=== PATIENT | male | born 1960 | race Caucasian/White ===

== ENCOUNTER 2016-12-10 20:01 | Inpatient (IN) | payer OTHER ==
[~2016-12-10] VITALS: Ht 182.9 cm; Wt 113.3 kg
--- NOTE | ~2016-12-10 | ECHO ---
Transthoracic Echocardiography Report (TTE) Demographics Patient Name MARY ALLEN Date of Study 12/11/2016 R Patient Number [id number] Visit Number [id number] Date of 1960 Room Number G6338 Gender Male Number Age 56 year(s) Referring Gorge Quintero MD Tube Mill Operator Arben Irby RVT, Physician RDCS Physician Interpreting Charley Holland MD Knit Goods Washer Physician Supervising Ordering Nicki Saavedra MD, MD/MLP Physician Nurse Stress Bar Supervisor Conclusions Contractility Score Summary At rest the following contractility abnormalities were noted: Hypokinesis of the Apical inferior and the Apical septal segments. Contractility of all other segments appeared normal. Summary The estimated left ventricular ejection fraction is 50%. Mild concentric left ventricular hypertrophy. Diastolic assessment reveals Grade I diastolic dysfunction. The left atrium is moderately dilated. No significant valvular abnormalities. Procedure Type of Study TTE procedure:2D Echocardiogram. Procedure Date Date: 12/11/2016 Start: 09:04 AM Study Location: Inpatient Portable Technical Quality: Adequate visualization Indications:Chest pain. Appropriate Use Criteria: 8 Patient Status: Routine Rhythm: NSR HR: 74 bpm BP: 139/65 mmHg Allergies - No known allergies. M-Mode/2D Measurements LV Diastolic Dimension: 5.85 cm LV Systolic Dimension: 3.83 cm LV Septum Diastolic: 1.34 cm LV PW Diastolic: 1.12 cm AO Root Dimension: 2.8 cm Cardiac Output: 3.96 l/min AV Cusp Separation: 2.1 cm RV Diastolic Dimension: 3.5 cm LA volume: 88 ml LVOT: 2.3 cm RV Base: 3.42 cm LVOT VTI: 12.9 cm RV Mid: 3.22 cm LV Stroke volume: 53.57 ml TAPSE: 1.99 cm TDI-S': 12.8 cm/s Doppler Measurements AV Peak Velocity: 1.26 m/s MV Peak E-Wave: 0.7 m/s AV Peak Gradient: 6.35 mmHg MV Peak A-Wave: 0.89 m/s AV Mean Gradient: 4 mmHg MV E/A Ratio: 0.78 LVOT Peak Velocity: 0.59 m/s MV P1/2t: 44 msec PV Peak Velocity: 1.12 m/s E' Septal Velocity: 0.08 m/s PV Peak Gradient: 5.02 mmHg E' Lateral Velocity: 0.14 m/s A' Septal Velocity: 0.14 m/s A' Lateral Velocity: 0.12 m/s Findings Left Ventricle Mild concentric left ventricular hypertrophy. Diastolic assessment reveals Grade I diastolic dysfunction. Mild inferior wall hypokinesis Right Ventricle Normal right ventricle structure and function. Left Atrium Normal left atrial size. Right Atrium Normal right atrial size. IVC measures 1.61 cm with inspiratory collapse. Mitral Valve Normal mitral valve structure and function. Aortic Valve Normal aortic valve structure and function. Tricuspid Valve Normal tricuspid valve structure and function. Pulmonic Valve Trivial pulmonic valve regurgitation by color Doppler. Pericardial Effusion No evidence of pericardial effusion. Miscellaneous Visualized portions of the aortic root and ascending aorta appear normal in size. Pleural Effusion No evidence of pleural effusion. Contractility Score LV regional wall motion:(0-Non visualized 1-Normal 2-Hypokinesis 3-Akinesis 4-Dyskinesis 5-Aneurysm) Signature dtt: Skyler Whitehead (cardio) dtd: 12/11/16 0904 Physician Self Edit
--- NOTE | ~2016-12-10 | ER ---
PATIENT'S NAME: MARY ALLEN [facility] AGE: 56 Y [address] ROOM: [place] [address] LOCATION: GPCU ADMIT DATE: 12/10/2016 ER/Outpatient Report DISCHARGE DATE: FAMILY PHYSICIAN: Sawyer Pennington MD ATTENDING PHYSICIAN: JUAN FINE Time of Arrival: 2000 hours. Time of Exam: 2001 hours. CHIEF COMPLAINT: Chest pain. HISTORY OF PRESENT ILLNESS: The patient states on 12/08/2016, he had an episode of mid chest pain that radiated into his left arm. He took Tums and the pain was relieved and did not have any more problems over the weekend. He had the episode occur again today at 3 o'clock. It started at the mid chest area and radiates down into his left arm. He was not nauseated, did not vomit, did not feel diaphoretic or short of breath. He did describe it as a burning sensation. He did take Tums. His symptoms were improved. He talked with a friend and a pharmacist at [facility], who recommended that he get it evaluated since it did radiate down into his arm. Upon arrival to the ER, he states he is pain-free. He does not have any pain at this time. He said when the pain did not occur at 3 o'clock this afternoon, he rated it as 7/10, but it is 0 at this time. ALLERGIES: HE HAS NO KNOWN ALLERGIES. CURRENT MEDICATIONS: Tums that he has been taking for this discomfort. PAST MEDICAL HISTORY: Possibly reflux. FAMILY HISTORY: He is unsure of. He states he was adopted. PAST SURGERY: Includes neck fusion at C4-C5 to C5-C6 and tonsillectomy. SOCIAL HISTORY: He presents to the ER accompanied by his . He does smoke 1-1/2 packs per day and has for at least 20 years. Denies use of drugs or alcohol. PRIMARY CARE PHYSICIAN: PATIENT'S NAME: MARY ALLEN [facility] AGE: 56 Y [address] ROOM: [place] [address] LOCATION: GPCU ADMIT DATE: 12/10/2016 ER/Outpatient Report DISCHARGE DATE: FAMILY PHYSICIAN: Sawyer Pennington MD ATTENDING PHYSICIAN: JUAN FINE Dr. is his primary provider. REVIEW OF SYSTEMS: Negative other than those mentioned in the HPI. PHYSICAL EXAMINATION: VITAL SIGNS: He weighed 115.7 kilograms; blood pressure is 159/89; pulse of 80; respirations 18; temperature of 97, tympanic; O2 saturation was 98% on room air. GENERAL: He is awake, alert, and oriented x4. SKIN: [place], warm, and dry. RESPIRATIONS: Even and nonlabored. LUNGS: Lung sounds are coarse throughout. No wheezing noted. HEART: Regular rate and rhythm. ABDOMEN: Soft, nondistended. Bowel sounds are present. He moves all extremities strongly and equally. LABORATORY DATA AND X-RAYS: Initial EKG shows sinus rhythm with left axis deviation. Lab work was drawn. CBC is within normal limits. Chem panel; sodium is 137, potassium 3.7, chloride 102, BUN is 11 with a creatinine of 1. Cardiac enzymes; CPK is 125, CK-MB is 1.6, troponin was elevated at 0.099. EMERGENCY DEPARTMENT COURSE: Saline lock was initiated. The patient was given 4 baby aspirin. Monitor continues to show sinus rhythm. Dr. Fine was contacted regarding the patient. He asked that we repeat the EKG and do the enzymes early. Repeat EKG was completed, no changes were noted. Lab work was done. CPK is 134, CK-MB is 1.6, troponin is increased to 0.109. The patient continues to deny having any chest pain or chest discomfort at the time. Chest x-ray was completed, no abnormalities are seen. IMPRESSION: Chest pain. PLAN: The patient will be placed in observation on PCU, to be followed by the hospitalist. He and his verbalized understanding. HORACIO DODSON APRN FOR JONN AGUILLON MD PATIENT'S NAME: MARY ALLEN [facility] AGE: 56 Y [address] ROOM: [place] [address] LOCATION: GPCU ADMIT DATE: 12/10/2016 ER/Outpatient Report DISCHARGE DATE: FAMILY PHYSICIAN: Sawyer Pennington MD ATTENDING PHYSICIAN: JUAN FINE/jenny /[id number] d: 12/11/1612 t: 12/14/16 1830, OUTPATIENT REPORT
--- NOTE | ~2016-12-10 | HP ---
PATIENT'S NAME: MARY ALLEN [facility] AGE: 56 Y [address] ROOM: [place] [address] LOCATION: GPCU ADMIT DATE: 12/10/2016 History & Physical DISCHARGE DATE: FAMILY PHYSICIAN: Sawyer Pennington MD ATTENDING PHYSICIAN: JUAN FINE DATE OF SERVICE: CHIEF COMPLAINT: Chest pain. HISTORY OF PRESENT ILLNESS: This is a 56-year-old male who said he was told in the past that he had some kind of irregular heart rhythm, but details not clear. He had also been told that he possibly had diabetes, but he was also not sure. He takes nothing at home for medications. The story started about 2 days ago while he was sitting on the couch. He felt this heartburn type of pain in the epigastric area and radiated to the left and right lower chest, intensity about 6/10. He felt like heartburn type of pain. He took some Tums and the pain went away totally. 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 However, when he sat down on the couch again, he felt this pain again in the epigastric area of the same intensity 6/10, felt like heartburn with radiation to the left and right lower chest and he took Tums again, and the pain went away again. He went to the pharmacy and he was told by the pharmacist to come to the ER for further evaluation to make sure that the heart was okay. The patient has never had this type of pain before. He denies any shortness of breath or fever or chills or any other symptoms. He is sedentary, obese, and actively smokes cigarettes. REVIEW OF SYSTEMS: As mentioned in the history of present illness. All other systems were reviewed and were negative except those mentioned in history of present illness. PAST MEDICAL HISTORY: 1. He was told in the past that he possibly had diabetes, but he is not sure. 2. He was told that he possibly had some kind of irregular heart rhythm, but he was not sure. ALLERGIES: NONE. HOME MEDICATIONS: None. PATIENT'S NAME: MARY ALLEN [facility] AGE: 56 Y [address] ROOM: [place] [address] LOCATION: GPCU ADMIT DATE: 12/10/2016 History & Physical DISCHARGE DATE: FAMILY PHYSICIAN: Sawyer Pennington MD ATTENDING PHYSICIAN: JUAN FINE SOCIAL HISTORY: The patient smokes cigarette about 1 pack per day for the last 20 years. He denies any illegal drug or any alcohol use. PAST SURGICAL HISTORY: 1. Neck surgery in the past. 2. Tonsillectomy. FAMILY HISTORY: He is adopted, therefore he does not know anything about his biological parents. He also does not know anything about his siblings. PHYSICAL EXAMINATION: VITAL SIGNS: At the time of my dictation; temperature 97.9, heart rate 71, respirations 17, blood pressure 158/82, saturation 95% on room air. GENERAL APPEARANCE: The patient is alert and oriented x3. Currently, in no acute distress. HEENT: Pupils equally round and reactive to light. Extraocular muscles intact. Anicteric sclerae. Nasal turbinates normal bilaterally. Moist oral mucosa. NECK: No JVD. CARDIOVASCULAR: Regular rate and rhythm. No murmur. No rubs. No gallops. Normal S1, S2. RESPIRATORY: Clear to auscultation. No rales. No rhonchi. No wheezing. No crackles. ABDOMEN: Obese, soft, nontender, nondistended, bowel sounds present. No mass. EXTREMITIES: No edema in upper or lower extremities. NEUROLOGICAL: Grossly nonfocal. SKIN: No ulcer, no rash, no cyanosis. LABORATORY DATA: CPK 125, troponin 0.099, CK-MB 1.6. White blood cell 9.4, hemoglobin 15.6, hematocrit 43.7, platelet 198, glucose 191, BUN 11, creatinine 1.0. Sodium 137, potassium 3.7, chloride 102, CO2 28, calcium 9.6, total protein 7.3, albumin 3.7, AST 19, ALT 38, alkaline phosphatase 95, total bilirubin 0.4, magnesium 2.1. Anion gap 10.7, INR 1.02, PTT 28, GFR 84. IMAGING STUDIES: Chest x-ray on admission, the official reading is pending. Please follow up with imaging and official report. EKG on admission, the first one was done on December 10, 2016 at 8:06 p.m. it shows sinus rhythm with left axis deviation. I do appreciate ST depression in anterolateral leads. No prior EKG for comparison. PATIENT'S NAME: MARY ALLEN [facility] AGE: 56 Y [address] ROOM: [facility] [place] [address] LOCATION: GPCU ADMIT DATE: 12/10/2016 History & Physical DISCHARGE DATE: FAMILY PHYSICIAN: Sawyer Pennington MD ATTENDING PHYSICIAN: JUAN FINE Repeat EKG back on December 10, 2016, at 9:33 p.m. again showed the same finding with a left axis deviation and ST depression in anterolateral leads. No prior EKG for comparison besides the first one admission before. ASSESSMENT AND PLAN: 1. Regarding his Lwo-LG-mnispezdb myocardial infarction. He has ST depression showing ischemia on EKG and he has risk factor for being obese and also active cigarette smoker and possibly has diabetes and he has troponin elevation. This is consistent with NSTEMI. I will do ACS protocol with heparin drip and a nitroglycerin drip for blood pressure control. An EKG in the morning again and EKG right away if he has chest pain. We will do aspirin and also Lipitor and also Lopressor as well. Echo in the morning, Cardiology consult and also further plan will depend on clinical course. N.p.o. Check lipid panel and A1c. Keep the potassium more than 4 and magnesium more than 2. 2. Regarding his possible diabetes. We will do sliding scale insulin right now. Check A1c. 3. Regarding history of possible irregular heart rhythm. Continue telemetry monitoring to see if we can pickup any arrhythmia. 4. Active tobacco use. Continue with nicotine patch. 5. He is a full code. 6. Deep venous thrombosis prophylaxis. He will be on heparin drip. Time spent in care on the day of admission 35 minutes where 10 minutes were spent on chart review. The remainder of the time spent on interview and physical examination, and also on counseling. Counseling includes going over plan of care with the patient and addressing all the questions and concerns to his satisfaction. Further plan will depend on clinical course. I also went over the plan of care with the nurse. JUAN FINE MD CC/modl /[id number] D: [id number] T: [id number] HISTORY & PHYSICAL
--- NOTE | ~2016-12-10 | DS ---
PATIENT'S NAME: MARY ALLEN [facility] AGE: 56 Y [address] ROOM: [facility] [place], [place] [address] LOCATION: GPCU ADMIT DATE: 12/10/2016 Discharge Summary DISCHARGE DATE: 12/12/2016 FAMILY PHYSICIAN: Sawyer Pennington MD ATTENDING PHYSICIAN: Amarjit Caceres FINAL/DISCHARGE DIAGNOSES: 1. Bih-UO-ctsjebrup myocardial infarction. 2. New-onset diabetes mellitus. 3. Dyslipidemia. 4. Long-term nicotine usage. HISTORY OF PRESENT ILLNESS: Please see the history and physical dictated by Dr. Caceres for details. In short, the patient presented with a 2 to 3 day history of chest pain and heartburn. He was seen in the emergency room and found to have elevated cardiac enzymes. LABORATORY DATA: On admission, sodium 137, discharge 141; potassium on admission 3.7, was 3.7 on discharge; chloride on admission 28, discharge 24; BUN on admission 11, discharge 11; and creatinine on admission 1, discharge 0.9. Liver enzymes were normal. Total cholesterol was 202, triglycerides 200, HDL 33, and LDL 129. His troponin, his CK enzymes were all in the normal range. His troponin on admission was 0.099. It did gradually increase and the highest was 0.205. Hemoglobin A1c was 8.6, a proBNP was 328. White blood cell count on admission was 9.4, hemoglobin 15.6, hematocrit 43.7, MCV was 89.9, and platelet count 198,000. His coagulation studies were all normal on admission. RADIOLOGY DATA: Chest x-ray on admission did not show any acute changes. Echocardiogram showed that his ejection fraction was 50%. He did have hypokinesis of the apical inferior and apical septal regions. There was grade 1 diastolic dysfunction and evidence of mild concentric left ventricular hypertrophy. HOSPITAL COURSE: The patient was admitted to PCU with an acute coronary syndrome protocol. He was placed on IV nitroglycerin and heparin. He was also given an aspirin and a beta eric and started on a high-dose statin. Dr. Whitehead did see him in consultation and felt that he required a cardiac catheterization. The patient was taken to the catheterization lab on the afternoon of December 11. At that time, he was found to have a lesion in his right coronary artery. The patient did undergo a PTCA stent for that. Please see Dr. Whitehead's note for full details of the cardiac catheterization. The patient was noted to have elevated blood sugars and his hemoglobin A1c of 8.6, was consistent with a diagnosis of diabetes mellitus, type 2. The patient was started on NovoLog carb count and sliding scale here to help control his blood PATIENT'S NAME: MARY ALLEN [facility] AGE: 56 Y [address] ROOM: [place] [address] LOCATION: GPCU ADMIT DATE: 12/10/2016 Discharge Summary DISCHARGE DATE: 12/12/2016 FAMILY PHYSICIAN: Sawyer Pennington MD ATTENDING PHYSICIAN: Amarjit Caceres. A life educator was asked to see him regarding education. The patient was monitored overnight. After his cardiac intervention, he was overall doing well. Was symptom free. The life educator had seen him and the decision was made to discharge him. At that time, we did speak about medications. I told him that I would like to place him on Glucophage. He did share with me that he had used that medication in the past and had significant diarrhea. He was using it in the morning and did not have a specific recall of the dosage. After discussion with he and his significant other, the decision was made to try it again but to use it in the evening. DISCHARGE INSTRUCTIONS: He is to follow up with Dr. Pennington, his primary care provider in [place]. He is to see him in 3 to 5 days. Follow up with Dr. Skyler Whitehead in 2 weeks. Diet was diabetic diet. He is to follow the routine post catheterization restrictions. He was told that he could return to work on 12/17/2016. He was counseled about the importance of smoking cessation. DISCHARGE MEDICATIONS: 1. Aspirin 81 mg daily. 2. Lipitor 80 mg at bedtime. 3. Enalapril 2.5 mg daily. 4. Metoprolol 25 mg twice daily. 5. Brilinta 90 mg twice daily. He was given a coupon. 6. Metformin 500 mg to start in the evening, to start on December 13. OVERALL PROGNOSIS: At discharge was good. It was also recommended that he follow up with the life educator. He did voice understanding. MD HOMER GALAN/nakull /[id number] d: 12/13/16 1622 t: 12/14/16 1949, DISCHARGE SUMMARY
--- NOTE | ~2016-12-10 | CATH ---
Cardiac Diagnostic + PCI Report Demographics Patient Name TIFFANY Gender Male MARY Briones Date of 1960 Age 56 year(s) Patient Number [id number] Date of Study 12/11/2016 Visit Number [id number] Room Number G6[address] [place] [id number] Ht 182.88 cm Wt 113.4 kg Referring Gorge Quintero Primary Physician Physician MD Performing Charley Holland MD Secondary Physician Physician Diagnostic Charley Holland MD Assisting Physician Physician Interventional Charley Holland MD Physician 7Th Grade Teacher Physician Findings and Conclusions Diagnostic Findings and Conclusion 1 vessel CAD Diagnostic Recommendations PCI RCA Interventional Findings and Conclusion 0.014 Prowater 3.5 x 20 Emerge 4 x 38 Promus post dilated to 4.3mm Interventional Recommendations DAPT x1 year Routine post perclose Procedure Description The patient was brought to the diagnostic cardiac catheterization-EP laboratory in the fasting, non-sedated state. Informed consent was obtained in the written and verbal form after the risks and benefits were explained. The patient had no further questions and agreed to proceed. The planned puncture-incision site(s) were shaved and prepped with ChloraPrep and draped in the usual sterile manner. Conscious sedation, supplemental oxygen, and pain control medications were delivered by a registered nurse under physician guidance. Surface ECG rhythm, blood pressure measurement, and pulse oximetry were monitored throughout the procedure. Arterial access. The access site was infiltrated with lidocaine. The vessel was entered with the Seldinger technique. A sheath was advanced into the vessel and used for catheter placement. Selective left coronary angiography. A catheter was advanced into the left coronary vessel ostium under Fluoroscopic guidance. Contrast was injected by hand. Images were obtained in multiple projections. Selective right coronary angiography. A catheter was advanced into the right coronary vessel ostium under fluoroscopic guidance. Contrast was injected by hand. Images were obtained in multiple projections. Left heart catheterization. A catheter was advanced across the aortic valve to the left ventricle under fluoroscopic guidance. Resting hemodynamics were obtained. Angioplasty and Stent Placement: A guiding catheter was used to intubate the vessel. A 0.14 wire was then used to cross the lesion. A balloon catheter was placed across the lesion and inflated. The balloon catheter was then removed. A Drug Eluting Stent was placed and inflated. Post placement angiograms were performed. Arterial artery hemostasis was achieved. The patient was transferred to a regular nursing floor via cart accompanied by a nurse. The patient left the laboratory in stable condition. Diagnostic Cath Status: Urgent Interventional Cath Status: Urgent Procedure Procedure Type Diagnostic procedure:Angiography:, Coronary Angios /[facility] PCI procedure:Drug Eluting Coronary Stent:, RCA Indications: NSTEMI. The procedure was explained in detail to the patient. Risks, complications and alternative treatments were reviewed. Written consent was obtained. Medications Reviewed with Patient prior to Procedure. Angiographic Findings Dominance: Right Cardiac Arteries and Lesion Findings LMCA: Normal (0% Stenosis). LAD: Normal (0% Stenosis).LAD medium proximal. Small mid-distal mild plaque. Diag 1 medium. LCx: Normal (0% Stenosis).Circ non dominant small ok. RCA: PL and PAD large and normal. Lesion on Mid RCA: Mid subsection.99% stenosis 38 mm length reduced to 0%. Pre procedure SOBEIDA III flow was noted. Post Procedure SOBEIDA III flow was present. The guidewire cross was successful.The lesion was diagnosed as a high risk lesion.Culprit lesion. Devices used - 908 Devices Wire .014 x 180. Number of passes: 1. - Emerge Balloon 3.5 x 20. 2 inflation(s) to a max pressure of: 9 bharath. - Promus Premier 4.0 x 38 Stent. 2 inflation(s) to a max pressure of: 16 bharath. Coronary Tree Procedure Data Procedure Date Date: 12/11/2016Start: 02:42 PMEnd: 03:27 PM Entry Locations - Percutaneous access was performed through the Right Femoral artery (Primary location). A 6 Fr sheath was inserted. Hemostasis was successfully obtained using Perclose ProGlide (Franks). Closure Comments: Perclose deployed by Kevin. Procedure Medications Order and Administration + + + + + !Time !Medication !Dosage !Route ! + + + + + !12/11/2016 02:40 PM!Versed !1 mg !I.V. ! + + + + + !12/11/2016 02:40 PM!Fentanyl !50 mcg !I.V. ! + + + + + !12/11/2016 02:56 PM!Heparin (ACC_3) !3000 units!I.V. bolus ! + + + + + !12/11/2016 02:56 PM!Heparin (ACC_3) ! !I.V. drip ! + + + + + 12/11/2016 03:00 PM!Reopro (Abciximab) (ACC_7) !28.2 mg !I.V. bolus ! + + + + + !12/11/2016 03:03 PM!Nipride !50 mcg !I.C. ! + + + + + !12/11/2016 03:04 PM!Reopro (Abciximab) (ACC_7) !10 mcg/min!I.V. drip ! + + + + + !12/11/2016 03:14 PM!Nipride !50 mcg !I.C. ! + + + + + !12/11/2016 03:20 PM!Brilinta (Ticagrelor) (ACC_20)!180 mg !P.O. ! + + + + + !12/11/2016 03:31 PM!Nitroglycerin !5 mcg/min !I.V. drip ! + + + + + Devices Used - A6 Fr. BS JL 4 Diag. Catheterwas used for:Left coronary angiography. - A6 Fr. BS JR 4 Diag. Catheterwas used for:Right coronary angiography. - A6 Fr. BS Angled Pigtail Diag. Catheterwas used for:LV Pressures. - A6 Fr. JR4 Guide Catheterwas used for:RCA Intervention. Contrast Material - Isovue [id number] ml Fluoroscopy Time: Diagnostic: 9:12 minutes. Total: 9:12 minutes. Fluoroscopy Dose: Diagnostic: 1900 mGy. Total: 1900 mGy. Estimated Blood Loss: 10 ml. Additional [facility] PCI Information PCI Indication:PCI for high risk Non-STEMI or unstable angina. Medical History Performed Procedures and Imaging Results - No [facility] stress or imaging studies were performed. Allergies - No known allergies. Risk Factors The patient risk factors include:diabetes mellitus, last creatinine: 0.9 mg/dl, creatinine clearance: 147 ml/min and Current/Recent(w/in 1 year) tobacco use. Admission Data Admission Date: 12/10/2016 Admission Time: 10:24 PM Insurance Payors: Private health insurance. Clinical Evaluation Leading to Procedure - The patient's CAD presentation was assessed as: Non-STEMI. Hemodynamics Condition: Rest O2 Consumption: Estimated: 281.05Heart Rate: 75 bpm Pressures (mmHg) +-----+ + !Site !Pressure ! +-----+ + !AO !145/76 (104) ! +-----+ + !LV !151/-9 ,16 ! +-----+ + !LV !150/-12 ,12 ! +-----+ + !AO !147/72 (104) ! +-----+ + !LV !152/-18 ! +-----+ + Valve Gradients and Areas + +---------+---------+---------+ +---------+ + !Valve !Peak !Mean !Area !Index !Flow !Source ! + +---------+---------+---------+ +---------+ + !Aortic !5 !14 ! ! ! ! ! + +---------+---------+---------+ +---------+ + !Aortic !5 !14 ! ! ! ! ! + +---------+---------+---------+ +---------+ + Shunts Oxygen Values O2 Capacity 212.16 O2 Consumption 281.05 Discharge Data Discharge Date: 12/12/2016 Hospital Status: Inpatient Signatures dtt: Skyler Whitehead (cardio) dtd: 12/11/16 1442 Physician Self Edit
[2016-12-10 20:28] LABS: BASOPHIL # 0.1 K/uL (0.0-0.2); BASOPHIL % 0.9 %; EOSINOPHIL # 0.2 K/uL (0.0-0.5); EOSINOPHIL % 2.4 %; HEMATOCRIT 43.7 % (37.0-53.0); HEMOGLOBIN 15.6 g/dL (12.0-17.0); IMMATURE GRANULOCYTE % 0.2 %; LYMPHOCYTE # 2.4 K/uL (0.8-4.0); LYMPHOCYTE % 25.1 %; MCH 32.1 pg (27.0-34.0); MCHC 35.7 gm/dL (32.0-36.5); MCV 89.9 fl (83.0-98.0); MONOCYTE # 0.8 K/uL (0.0-1.0); MONOCYTE % 8.2 %; MPV 10.5 fl (9.4-12.4); NEUTROPHIL # (ANC) 5.9 K/uL (1.4-9.0); NEUTROPHIL % 63.2 %; NRBC % 0 /100WBC (0-0.00); PLATELET COUNT 198 K/uL (150-450); RBC 4.86 M/uL (4.00-6.00); RDW-CV 12.7 % (11.9-14.6); WBC 9.4 K/uL (4.0-11.0)
[2016-12-10 20:39] LABS: INR - (THERAPEUTIC) 1.02 (0.92-1.07); PROTIME 10.7 SECONDS (9.8-11.4); PTT 28 SECONDS (25-32)
[2016-12-10 20:47] LABS: ALBUMIN 3.7 gm/dL (3.5-5.0); ANION GAP 10.7 (10.0-19.0); CALCIUM 9.6 mg/dL (8.5-10.5); MAGNESIUM 2.1 mg/dL (1.8-2.6); POTASSIUM 3.7 mMol/L (3.7-5.1); TOTAL BILIRUBIN 0.4 mg/dL (0.0-1.5); TOTAL PROTEIN 7.3 g/dL (6.0-8.4)
[2016-12-11 04:43] LABS: ANION GAP 10.5 (10.0-19.0); BLOOD UREA NITROGEN 10 mg/dL (6-24); CALCIUM 9.2 mg/dL (8.5-10.5); CHLORIDE 108 mMol/L (96-110); CO2 25 mMol/L (22-32); CPK 103 IU/L (35-332); CREATININE 0.9 mg/dL (0.6-1.3); MAGNESIUM 2.2 mg/dL (1.8-2.6); POTASSIUM 4.5 mMol/L (3.7-5.1); SODIUM 139 mMol/L (135-145)
[2016-12-12 03:19] LABS: BASOPHIL # 0.1 K/uL (0.0-0.2); BASOPHIL % 0.5 %; EOSINOPHIL # 0.2 K/uL (0.0-0.5); EOSINOPHIL % 1.8 %; HEMOGLOBIN 14.3 g/dL (12.0-17.0); IMMATURE GRANULOCYTE % 0.4 %; LYMPHOCYTE # 2.5 K/uL (0.8-4.0); LYMPHOCYTE % 26.2 %; MCH 31.7 pg (27.0-34.0); MCHC 34.9 gm/dL (32.0-36.5); MCV 90.9 fl (83.0-98.0); MONOCYTE # 0.9 K/uL (0.0-1.0); MONOCYTE % 9.1 %; MPV 10.6 fl (9.4-12.4); NEUTROPHIL # (ANC) 5.8 K/uL (1.4-9.0); NRBC % 0 /100WBC (0-0.00); PLATELET COUNT 184 K/uL (150-450); RBC 4.51 M/uL (4.00-6.00); RDW-CV 12.8 % (11.9-14.6); WBC 9.4 K/uL (4.0-11.0)
[2016-12-12 03:35] LABS: ALK PHOS 73 IU/L (33-138); ALT 28 IU/L (12-78); ANION GAP 12.7 (10.0-19.0); AST 11 IU/L (10-40); BLOOD UREA NITROGEN 11 mg/dL (6-24); CALCIUM 8.2 mg/dL (8.5-10.5); CHLORIDE 108 mMol/L (96-110); CO2 24 mMol/L (22-32); CREATININE 0.9 mg/dL (0.6-1.3); POTASSIUM 3.7 mMol/L (3.7-5.1); SODIUM 141 mMol/L (135-145); TOTAL PROTEIN 6.2 g/dL (6.0-8.4)
[2016-12-12 03:37] LABS: TOTAL BILIRUBIN 0.5 mg/dL (0.0-1.5)
[2016-12-12] MEDS ORDERED: ASPIRIN EC81 MG PO (12:33)
[2016-12-12] MEDS ORDERED: LIPITOR80 MG PO (12:37)
[2016-12-12] MEDS ORDERED: VASOTEC2.5 MG PO (12:38)
[2016-12-12] MEDS ORDERED: LOPRESSOR25 MG PO (12:39)
[2016-12-12] MEDS ORDERED: BRILINTA90 MG PO (12:40)
[2016-12-12] MEDS ORDERED: GLUCOPHAGE500 MG PO (12:41)
== END 2016-12-12 13:45 | disposition disaster alternative care site (69) | DRG 282 ==
LOC: GMED 20:01 → GPCU 22:23
PROVIDERS: Emergency Medicine; Internal Medicine Interventional Cardiology; ADMIT Internal Medicine
PROC: 4A023N7 Measurement of Cardiac Sampling and Pressure, Left Heart, Percutaneous Approach (ICD-10-PCS; principal; 2016-12-11)
PROC: B216YZZ Fluoroscopy of Right and Left Heart using Other Contrast (ICD-10-PCS; principal; 2016-12-11)
DX: I21.4 Non-ST elevation (NSTEMI) myocardial infarction (principal); I27.2 Other secondary pulmonary hypertension; E11.9 Type 2 diabetes mellitus without complications; Z91.81 History of falling; E66.9 Obesity, unspecified; Z68.33 Body mass index [BMI] 33.0-33.9, adult; F17.210 Nicotine dependence, cigarettes, uncomplicated
CPT/HCPCS: C1725; C1760; C1769; C1874; C1887; C9600; J0130; J0583; J1644; J2250; J3010; J7030; J7060